=== PATIENT | male | born 1950 | race Caucasian/White ===

== ENCOUNTER 2017-12-01 16:52 | Emergency (ER) | payer MEDICARE, OTHER ==
[2017-12-01 19:12] VITALS: BP 112/60
[2017-12-01] MEDS ORDERED: Amoxicillin/Clavulanate TAB* 875 MG PO ONE (19:28)
--- NOTE | 2017-12-01 19:29 | UC ---
Skin Complaint HPI - HPI Summary HPI Summary: pt presents to the ED for evaluation of his right hand. he states that his cat that has been sick for a while bit him yesterday. 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 he states his cat had all of his shots up to date. he denies any n/v/fever. he is right hand dominant. pt's td is utd. - History of Current Complaint Chief Complaint: UCBiteInjury Stated Complaint: CAT BITE Hx Obtained From: Patient Onset/Duration: Sudden Onset Skin Exposure Onset/Duration: Days Ago - 1 Timing: Constant Onset Severity: Mild Current Severity: Mild Pain Intensity: 0 Character: Swelling, Pain, Redness Associated Signs & Symptoms: Negative: Nausea, Chills, Cough Related History: Trauma - to right hand - Allergy/Home Medications Allergies/Adverse Reactions: Allergies Allergy/AdvReac Type Severity Reaction Status Date / Time bee stings Allergy Intermediate Swelling Uncoded 12/01/17 19:13 Home Medications: Home Medications ALPRAZolam TAB* [Xanax TAB*] 0.25 mg PO BEDTIME PRN 12/01/17 [History Confirmed 12/01/17] Amoxicillin PO (*) [Amoxicillin 500 MG CAP*] 1,000 mg PO ONCE 12/01/17 [History Confirmed 12/01/17] Gabapentin CAP(*) [Neurontin 300 CAP(*)] 300 mg PO BID 12/01/17 [History Confirmed 12/01/17] Pantoprazole TAB (NF) [Protonix TAB (NF)] 40 mg PO DAILY 12/01/17 [History Confirmed 12/01/17] Pravastatin (NF) [Pravachol (NF)] 60 mg PO DAILY 12/01/17 [History Confirmed 04/19] Zolpidem TAB* [Ambien TAB*] 10 mg PO BEDTIME PRN 12/01/17 [History Confirmed 04/19] Review of Systems Constitutional: Negative Skin: Rash Eyes: Negative ENT: Negative Respiratory: Negative Cardiovascular: Negative Gastrointestinal: Negative Genitourinary: Negative Motor: Negative Neurovascular: Negative Musculoskeletal: Negative Neurological: Negative Psychological: Negative All Other Systems Reviewed And Are Negative: No PMH/Surg Hx/FS Hx/Imm Hx Previously Healthy: Yes - Surgical History Surgical History: Yes Surgery Procedure, Year, and Place: left hit replacement 2011. left groin hernia 2016. prostatectomy 2006. bilat eye lens replacement 2014 - Social History Alcohol Use: Occasionally Substance Use Type: None Smoking Status (MU): Never Smoked Tobacco - Immunization History Most Recent Tetanus Shot: 2016 Physical Exam Triage Information Reviewed: Yes Appearance: Well-Appearing, No Pain Distress, Well-Nourished, Ill-Appearing Vital Signs: Initial Vital Signs Temp 98.3 F 12/01/17 19:03 Pulse 65 12/01/17 19:03 Resp 16 12/01/17 19:03 BP 112/60 12/01/17 19:03 Pulse Ox 97 12/01/17 19:03 Vital Signs Reviewed: Yes Eye Exam: Normal Eyes: Positive: Conjunctiva Clear ENT: Positive: Normal ENT inspection, Hearing grossly normal Dental Exam: Normal Neck exam: Normal Neck: Positive: Supple Respiratory Exam: Normal Cardiovascular Exam: Normal Abdomen Description: Positive: Nontender, Soft Bowel Sounds: Positive: Present Musculoskeletal Exam: Normal Musculoskeletal: Positive: Strength Intact, ROM Intact Neurological Exam: Normal Neurological: Positive: Alert, Muscle Tone Normal Psychological Exam: Normal Skin: Positive: Other - redness to the thenar eminence on the right hand. there is a puncture wound, no pus is being expressed from the wound. there is red streaking up the arm up to the antecubital fossa. no swelling to the wrist and forearm. Course/Dx - Course Course Of Treatment: pt has a cat bite from his cat who he put down today. he stated that all of his shots were up to date. he has now redness to the site and redness starting to streak up his arm. - Differential Diagnoses - Skin Complaint Differential Diagnoses: Abscess, Cellulitis, Other - foreign body to hand, lymphangitis, rabies - Diagnoses Provider Diagnoses: animal bite, cellulitis, lymphangitis Discharge - Sign-Out/Discharge Documenting (check all that apply): Patient Departure All imaging exams completed and their final reports reviewed: Yes - Discharge Plan Condition: Stable Disposition: HOME Prescriptions: Amoxicillin/Clavulanate TAB* [Augmentin TAB 875*] 875 mg PO BID #20 tab Patient Education Materials: Animal Bite (ED), Lymphangitis (ED) Referrals: Roni Mendoza MD [Primary Care Provider] - Additional Instructions: Please follow up with your primary care physician in 2 days for a wound check. take the antibiotic as instructed. return if worse or any new symptoms. - Billing Disposition and Condition Condition: STABLE Disposition: Home
--- NOTE | 2017-12-02 07:41 | RAD ---
INDICATION: Cat bite to base of RIGHT thumb. Pain and swelling. Assess for potential retained foreign body. COMPARISON: No relevant prior exams available on the [facility] [place] [facility] [place]. TECHNIQUE: AP and lateral hand views RIGHT hand. REPORT AND IMPRESSION: #. Negative for conspicuous foreign body, subcutaneous emphysema, fracture, or articular malalignment. Mild nonfocal soft tissue swelling. R0
== END 2017-12-01 19:39 | disposition home or self-care (01) ==
LOC: UCCORT 16:52
DX: S61.451A Open bite of right hand, initial encounter (principal); L03.113 Cellulitis of right upper limb; I89.1 Lymphangitis; W55.01XA Bitten by cat, initial encounter; Y93.89 Activity, other specified; Y92.009 Unspecified place in unspecified non-institutional (private) residence as the place of occurrence of the external cause
CPT/HCPCS: 99212; A9270-GY; G0463

== ENCOUNTER 2018-01-16 11:56 | Emergency (ER) | payer MEDICARE ==
[2018-01-16 12:16] VITALS: BP 136/81
--- NOTE | 2018-01-16 12:26 | UC ---
UC General HPI - HPI Summary HPI Summary: shut R 4th finger in an overhead door yesterday. c/o pain and swelling. - History of Current Complaint Chief Complaint: UCTrauma Stated Complaint: SLAMMED FINGER IN DOOR 4TH FINGER,RT HAND Time Seen by Provider: 01/16/18 12:18 Hx Obtained From: Patient Onset/Duration: Sudden Onset Timing: Constant Pain Intensity: 3 Associated Signs & Symptoms: Negative: Fever - Allergy/Home Medications Allergies/Adverse Reactions: Allergies Allergy/AdvReac Type Severity Reaction Status Date / Time bee stings Allergy Intermediate Swelling Uncoded 01/16/18 12:16 PMH/Surg Hx/FS Hx/Imm Hx - Additional Past Medical History Additional PMH: sleep disturbance Endocrine History: Dyslipidemia GI/ History: Gastroesophageal Reflux - Surgical History Surgical History: Yes Surgery Procedure, Year, and Place: left hit replacement 2011. left groin hernia 2016. prostatectomy 2006. bilat eye lens replacement 2013 - Family History Known Family History: Positive: Non-Contributory - Social History Occupation: Employed Part-time Alcohol Use: Occasionally Substance Use Type: None Smoking Status (MU): Never Smoked Tobacco - Immunization History Most Recent Tetanus Shot: 2016 Vaccination Up to Date: Yes Review of Systems All Other Systems Reviewed And Are Negative: Yes Constitutional: Positive: Negative Skin: Positive: Negative Eyes: Positive: Negative ENT: Positive: Negative Respiratory: Positive: Negative Cardiovascular: Positive: Negative Gastrointestinal: Positive: Negative Genitourinary: Positive: Negative Motor: Positive: Negative Neurovascular: Positive: Negative Musculoskeletal: Positive: Negative Neurological: Positive: Negative Psychological: Positive: Negative Is Patient Immunocompromised?: No Physical Exam Triage Information Reviewed: Yes Appearance: Well-Appearing Vital Signs: Initial Vital Signs Temp 98.7 F 01/16/18 12:13 Pulse 64 01/16/18 12:13 Resp 16 01/16/18 12:13 BP 136/81 01/16/18 12:13 Pulse Ox 96 01/16/18 12:13 Vital Signs Reviewed: Yes Eyes: Positive: Conjunctiva Clear ENT: Positive: Normal ENT inspection Neck: Positive: Supple, Nontender, No Lymphadenopathy Respiratory: Positive: Lungs clear, Normal breath sounds Cardiovascular: Positive: RRR, No Murmur Abdomen Description: Positive: Nontender, No Organomegaly, Soft Bowel Sounds: Positive: Present Musculoskeletal: Positive: Other: - Tip of R 4th finger with tenderness, purple bruising, swelling and large-tense subungual hematoma. s/v/m is intact. rest of hand atraumatic Neurological: Positive: Alert Psychological: Positive: Age Appropriate Behavior Skin Exam: Normal Diagnostics - Radiology No standard instances Radiology Interpretation Completed By: ED Physician - wet read=tuft fx Course/Dx - Course Course Of Treatment: Procedure=time out. R 4th fingernail prep betadine. cautery stick used to make tiny hole in nail and hematoma drained. finger soaked in soap/warm water then dried and bacitracin applined to site then bandaide. aluminum foam splint to digit. pt tolerated well. will tx with keflex given large subungual hematoma over fx site was drained. - Differential Dx - Multi-Symptom Provider Diagnoses: tuft fx R 4th finger-non displaced. subungual hematoma R 4th finger Discharge - Sign-Out/Discharge Documenting (check all that apply): Patient Departure All imaging exams completed and their final reports reviewed: No - Discharge Plan Condition: Stable Disposition: HOME Prescriptions: Cephalexin CAP* [Keflex CAP*] 500 mg PO TID #21 cap Patient Education Materials: Finger Fracture (ED), Subungual Hematoma (ED) Referrals: Abel Friedman MD [Medical Doctor] - 5 Days Additional Instructions: USE SPLINT UNTIL CLEARED. SOAK FINGER IN WARM SOAPY WATER DAILY THEN APPLY ANTIBIOTIC OINTMENT TO TINY HOLE IN NAIL AND REAPPLY SPLINT. - Billing Disposition and Condition Condition: STABLE Disposition: Home
--- NOTE | 2018-01-17 14:45 | UC ---
- EKG/XRAY/CT Xray Comments: wet read correct Discharge - Sign-Out/Discharge Documenting (check all that apply): Post-Discharge Follow Up All imaging exams completed and their final reports reviewed: Yes - Discharge Plan Condition: Stable Disposition: HOME Prescriptions: Cephalexin CAP* [Keflex CAP*] 500 mg PO TID #21 cap Patient Education Materials: Subungual Hematoma (ED), Finger Fracture (ED) Referrals: Abel Friedman MD [Medical Doctor] - 5 Days Additional Instructions: USE SPLINT UNTIL CLEARED. SOAK FINGER IN WARM SOAPY WATER DAILY THEN APPLY ANTIBIOTIC OINTMENT TO TINY HOLE IN NAIL AND REAPPLY SPLINT. - Billing Disposition and Condition Condition: STABLE Disposition: Home
== END 2018-01-16 13:04 | disposition home or self-care (01) ==
LOC: UCCORT 11:56
DX: S62.664A Nondisplaced fracture of distal phalanx of right ring finger, initial encounter for closed fracture (principal); S60.141A Contusion of right ring finger with damage to nail, initial encounter; W23.0XXA Caught, crushed, jammed, or pinched between moving objects, initial encounter; Y92.9 Unspecified place or not applicable; Z91.030 Bee allergy status; Z96.642 Presence of left artificial hip joint; Z96.1 Presence of intraocular lens
CPT/HCPCS: 11740; 73140; 99212; G0463